=== PATIENT | female | born 1970 | race African-American/Black ===

== ENCOUNTER 2018-09-10 08:23 | Emergency (ER) | payer MEDICAID, OTHER ==
[~2018-09-10] VITALS: Ht 160 cm; Wt 94.0 kg
[~2018-09-10 08:23] MED LIST: CYCL5TAB PO; HYDR-1348 PO
[2018-09-10] MEDS ORDERED: MAGNESIUM CITRATE 300ML SOLUTION PO ONE (09:00)
[2018-09-10] MEDS ORDERED: NA PHOS,M-B/NA PHOS,DI-BA ENEMA 118ML PR ONE (09:00)
[2018-09-10] MEDS ORDERED: SODIUM CHLORIDE 0.9% 1,000 ML IV ONE (09:07)
[2018-09-10] MEDS ORDERED: KETOROLAC 30MG/ML VIAL IV STA (09:07)
[2018-09-10 10:00] LABS: BASOPHILS % 0.4 % (0.0-2.0); EOSINOPHILS % 0.8 % (0.0-5.0); HEMATOCRIT. 44.1 % (36.0-48.0); HEMOGLOBIN. 14.8 g/dL (12.0-16.0); LYMPHOCYTES % 11.9 % (20.0-50.0); MEAN CORPUSCULAR HEMOGLOBIN 31.1 pg (28.0-32.0); MEAN CORPUSCULAR VOLUME 92.7 fL (81.0-99.0); MEAN PLATELET VOLUME 8.9 fl (7.4-10.4); MONOCYTES % 2.8 % (2.0-8.0); NEUTROPHILS % 84.1 % (40.0-76.0); PLATELET 278 x1000/uL (130-400); RED BLOOD CELL COUNT 4.76 mill/uL (4.2-5.4); RED CELL DISTRIBUTION WIDTH 14.3 % (11.6-14.6)
[2018-09-10 10:05] LABS: CHLORIDE 101 mEq/L (98-107)
[2018-09-10 12:55] VITALS: BP 149/87
[2018-09-10] MEDS ORDERED: ONDANSETRON HCL 4MG TABLET PO ONE (13:00)
== END 2018-09-10 13:13 | disposition home or self-care (01) ==
LOC: ER 08:38
DX: K59.00 Constipation, unspecified (principal); F17.210 Nicotine dependence, cigarettes, uncomplicated; F12.10 Cannabis abuse, uncomplicated
CPT/HCPCS: 36415; 80053; 85025; 96374; 99284; J1885; J7030; Q0162

== ENCOUNTER 2018-09-12 15:26 | Emergency (ER) | payer OTHER ==
[~2018-09-12] VITALS: Ht 160 cm; Wt 94.5 kg
[2018-09-12 17:37] VITALS: BP 143/74
== END 2018-09-12 20:32 | disposition left against medical advice (07) ==
LOC: ER 17:31
DX: K59.00 Constipation, unspecified (principal); R10.9 Unspecified abdominal pain; Z53.21 Procedure and treatment not carried out due to patient leaving prior to being seen by health care provider